=== PATIENT | male | born 1955 | race Caucasian/White ===

== ENCOUNTER 2019-03-25 11:53 | Day surgery (SDC) | payer BC, SELFPAY ==
--- NOTE | 2019-03-25 07:14 | W.COLOREPORT ---
Date of service: 03/25/19 Time of Service: 13:23 Colonoscopy Report Date of procedure: 03/25/19 Pre-op diagnosis general: Hx of polyps, screening colonoscopy Post-op diagnosis procedure note: same Procedure: Colonoscopy Surgeon: Cha Samson Anesthesia proc note operative: other (General/ ASA 2/Maria Fernanda Castro CRNA ) Estimated blood loss (mL): 0 Pathology: none sent Complications: None Disposition: other (General/ ASA / ) Indications: 63 y/o male with history of HTN, depression, GRETCHEN, hypothyroidism, intention tremor and anxiety presents for colonoscopy screening pre-op. His last screening was in 2006, which was remarkable for a single polyp. He denies a family history of colon cancer. He denies any changes in bowel habits including bloody or black tarry stools, abdominal pain, diarrhea or constipation. He denies constitutional symptoms. Denies use of marijuana or any other recreational or illegal drugs. Risks, benefits and complications have been reviewed. Complications include but are not limited to bleeding, pain, perforation, missed small lesion/polyp, sore throat, aspiration and adverse reaction to the medications. Questions were entertained and answered to their satisfaction and they wished to proceed. No guarantees were given or implied. Prep: Miralax/Dulcolax Procedure Start Time: 13:23 Procedure End Time: 13:47 Retraction Time: 12 minutes Findings: NOrmal colon Procedure Description: After informed consent was obtained the patient was taken to the procedure room and placed in a left decubitous position. Monitors were applied and a time out was done. The patients name, date of , procedure, allergies to medications and metal in their body was reviewed. The patient was then sedated. Once sedated and comfortable a rectal exam was done. External exam was normal. Internal exam revealed a normal sphincter tone and no palpable masses. The prostate felt smooth and normal size. The scope was then introduced and retro-flexed. No internal hemorrhoids, polyps or masses were identified on retro-flexion. The scope was then advanced to the cecum without difficulty. The TI and appendiceal orifice were identified. The prep was adequate. The scope was then slowly retracted over 12 minutes back into the rectum. There were no polyps and no diverticula. The scope was removed and the patient was woken up and taken back to Same day surgery in stable condition. The patient tolerated the procedure well and there were no immediate complications. Follow up: The patient should follow up in 10 years unless they develop changes in bowel habits or other new gastrointestinal complaints.
--- NOTE | 2019-03-25 07:16 | PDOC.DSDIS_ITS ---
Discharge Plan Disposition Patient Disposition: HOME Condition: Good Discharge Details Reason For Visit: SCREENING Attending Provider: Cha Samson Primary Care Provider: Richie Todd Westover Meds and New Rx's Prescriptions: Continued sertraline 50 mg tablet 50 mg PO DAILY RF: 0 cholecalciferol (vitamin D3) 5,000 unit capsule 5,000 unit PO DAILY RF: 0 levomefolate calcium [L-Methylfolate] 15 mg tablet 15 mg PO DAILY RF: 0 aspirin [Adult Aspirin Regimen] 81 mg tablet,delayed release (DR/EC) 81 mg PO DAILY RF: 0 acetylcysteine 600 mg capsule 1,200 mg PO DAILY RF: 0 liothyronine 25 mcg tablet 25 mcg PO .QOD RF: 0 boron citrate 3 mg tablet 3 mg PO DAILY RF: 0 lamotrigine [Lamictal] 150 mg tablet 150 mg PO BID RF: 0 phenobarbital 32.4 mg tablet 32.4 mg PO DAILY PRNRF: 0 atenolol 100 mg Tablet 100 mg PO BID RF: 0 Discontinued polyethylene glycol 3350 17 gram/dose powder 238 g PO ONCE Qty: 238 RF: 0 bisacodyl [Dulcolax (bisacodyl)] 5 mg tablet,delayed release (DR/EC) 5 mg PO ONCE Qty: 4 RF: 0 Discharge Instructions Instructions: Colonoscopy (DC) Additional Instructions: Findings: Normal colon Follow up: 10 years Please call if you develop: fevers >101.5 Nausea or Vomiting Abdominal pain that is not transient DAY SURGERY UNIT POST ENDOSCOPY INSTRUCTIONS 1. Because there will be medication in your system for the next 24 hours, you may feel a little sleepy. Your coordination will be affected. Therefore: a. Do not drive or operate dangerous equipment for 24 hours. b. Do not drink alcohol beverages for 24 hours (not even beer). c. Plan to go home and rest for the day. 2. Generally there are no restrictions on your activity after a day or so has gone by, but you may feel a bit fatigued for a few days. 3 After you arrive home you may have a light meal and return to a normal diet as you can tolerate it without feeling sick to your stomach. 4. After surgery, you may feel pain or discomfort. This should be only transient, but if it persists please contact your doctor. 5. If there are any questions regarding the findings of your procedure, please feel free to contact your doctor. 6. If you are unable to contact your doctor with a problem, contact the hospital at [phone]. 7. Continue all your regular medications unless directed otherwise. I understand the above instructions and have no questions. Signature of Patient or Responsible Adult Escort Date/Time Name of Responsible Adult Escort Signature of Nurse Date/Time Activity:: Activity as Tolerated Diet:: As Tolerated Discharge Orders Discharge Orders: Discharge Order (Routine); Ordered 03/25/19 Ordered By: Cha Samson DS: Diagnosis Discharge Diagnosis (1) History of colonoscopy: Status: Chronic
[2019-03-25 12:21] VITALS: BP 113/68; PULSE 55; RESP 16; TEMP 36.6; O2SAT 96
[2019-03-25] MEDS: Lactated Ringers 1,000 ML 80 ML IV (12:51)
[2019-03-25 14:30] VITALS: BP 136/84; PULSE 50; RESP 16; TEMP 36; O2SAT 95
== END 2019-03-25 15:05 | disposition home or self-care (01) ==
LOC: SUR 11:54
PROVIDERS: PCP Internal Medicine; Visit Provider Surgery
PROC: 0DJD8ZZ Inspection of Lower Intestinal Tract, Via Natural or Artificial Opening Endoscopic (ICD-10-PCS; CPT 45378; principal; 2019-03-25 13:00)
DX: Z12.11 Encounter for screening for malignant neoplasm of colon (principal); Z86.010 Personal history of colon polyps; I10 Essential (primary) hypertension; G47.33 Obstructive sleep apnea (adult) (pediatric)
CPT/HCPCS: 45378